=== PATIENT | male | born 1990 | race Hispanic/Latino ===

== ENCOUNTER 2017-12-31 12:52 | Emergency (ER) | payer MEDICAID ==
--- NOTE | 2017-12-31 15:45 | Emergency Department Report ---
- General Chief complaint: Skin Rash Stated complaint: INSECT BITE Time Seen by Provider: 12/31/17 15:04 Source: patient Mode of arrival: Ambulatory Limitations: No Limitations - History of Present Illness Initial comments: 27-year-old male past medical history diabetes insipidus mental retardation, migraines presents for evaluation sent from [facility] for evaluation of possible insect bite/bedbug bites on body. Patient is awake alert and oriented 3 not in acute distress. Is able to answer my questions and is accompanied by program director group work at bedside. Patient states that he has slightly itchy rash in the back of his neck. As per program director group work patient is in close proximity with another patient who is suspected to have bed bugs. Patient states that over the back of his neck feels slightly itchy and he has slight rash there. 2 small reddish visible bumps on back of neck. As per program director group work [employer] have been contracted to check the [facility] for bed bugs. MD complaint: insect bite/sting Onset/Timin -: week(s) Location: neck Severity: moderate Severity scale (0 -10): 5 - Related Data Home Medications Medication Instructions Recorded Confirmed Last Taken Desmopressin Acetate [Ddavp] 0.2 mg PO BID 09/18/13 12/06/14 12/06/14 Divalproex ER [Depakote ER] 500 mg PO BID 09/18/13 12/06/14 12/06/14 Eyelid Cleanser Comb No.7 [Ocusoft 1 each TP BID 09/18/13 12/06/14 12/06/14 Lid Scrub] Naltrexone (Nf) [Revia] 50 mg PO BID 09/18/13 12/06/14 12/06/14 Oxybutynin Chloride [Oxybutynin 5 mg PO BID 09/18/13 12/06/14 12/06/14 Chloride ER] Quetiapine Fumarate [Seroquel XR] 300 mg PO TID 09/18/13 12/06/14 12/06/14 lamoTRIgine [Lamotrigine] 100 mg PO BID 09/18/13 12/06/14 12/06/14 Levothyroxine [Synthroid] 50 mcg PO QAM 08/06/14 12/06/14 12/06/14 Neudexta 0612/06/14 12/06/14 Previous Rx's Medication Instructions Recorded Last Taken Type Amoxicillin/K Clav Tab [Augmentin 1 tab PO BID #20 tablet 12/06/14 Unknown Rx 875MG] Cephalexin [Keflex] 500 mg PO QID #20 capsule 03/10/16 Unknown Rx Cephalexin [Keflex] 500 mg PO BID #10 capsule 12/31/17 Unknown Rx Hydrocortisone 1% [Hydrocortisone 1 applicatio TP TID PRN #1 tube 12/31/17 Unknown Rx 1% CREAM] Mupirocin [Bactroban 2% OINT] 1 applic TP TID #1 tube 12/31/17 Unknown Rx Permethrin 5% [Acticin 5% CREAM] 1 applicatio TP ONCE #1 tube 12/31/17 Unknown Rx Allergies Allergy/AdvReac Type Severity Reaction Status Date / Time No Known Allergies Allergy Verified 12/31/17 13:05 Abscess Boil HPI - HPI Chief Complaint: Skin Rash Stated Complaint: INSECT BITE Time Seen by Provider: 12/31/17 15:04 Home Medications: Home Medications Medication Instructions Recorded Confirmed Last Taken Desmopressin Acetate [Ddavp] 0.2 mg PO BID 09/18/13 12/06/14 12/06/14 Divalproex ER [Depakote ER] 500 mg PO BID 09/18/13 12/06/14 12/06/14 Eyelid Cleanser Comb No.7 [Ocusoft 1 each TP BID 09/18/13 12/06/14 12/06/14 Lid Scrub] Naltrexone (Nf) [Revia] 50 mg PO BID 09/18/13 12/06/14 12/06/14 Oxybutynin Chloride [Oxybutynin 5 mg PO BID 09/18/13 12/06/14 12/06/14 Chloride ER] Quetiapine Fumarate [Seroquel XR] 300 mg PO TID 09/18/13 12/06/14 12/06/14 lamoTRIgine [Lamotrigine] 100 mg PO BID 09/18/13 12/06/14 12/06/14 Levothyroxine [Synthroid] 50 mcg PO QAM 08/06/14 12/06/14 12/06/14 Neudexta 06/30/15 06/30/15 06/30/15 Previous Rx's Medication Instructions Recorded Last Taken Type Amoxicillin/K Clav Tab [Augmentin 1 tab PO BID #20 tablet 12/06/14 Unknown Rx 875MG] Cephalexin [Keflex] 500 mg PO QID #20 capsule 03/10/16 Unknown Rx Cephalexin [Keflex] 500 mg PO BID #10 capsule 12/31/17 Unknown Rx Hydrocortisone 1% [Hydrocortisone 1 applicatio TP TID PRN #1 tube 12/31/17 Unknown Rx 1% CREAM] Mupirocin [Bactroban 2% OINT] 1 applic TP TID #1 tube 12/31/17 Unknown Rx Permethrin 5% [Acticin 5% CREAM] 1 applicatio TP ONCE #1 tube 12/31/17 Unknown Rx Allergies/Adverse Reactions: Allergies Allergy/AdvReac Type Severity Reaction Status Date / Time No Known Allergies Allergy Verified 12/31/17 13:05 ED Review of Systems ROS: Stated complaint: INSECT BITE Other details as noted in HPI Constitutional: denies: chills, fever Eyes: denies: eye pain, eye discharge, vision change ENT: denies: ear pain, throat pain Respiratory: denies: cough, shortness of breath, wheezing Cardiovascular: denies: chest pain, palpitations Endocrine: no symptoms reported Gastrointestinal: denies: abdominal pain, nausea, diarrhea Genitourinary: denies: urgency, dysuria Musculoskeletal: denies: back pain, joint swelling, arthralgia Skin: denies: rash, lesions Neurological: as per HPI. denies: headache, weakness, paresthesias Psychiatric: denies: anxiety, depression Hematological/Lymphatic: denies: easy bleeding, easy bruising ED Past Medical Hx - Past Medical History Previous Medical History?: Yes Hx Diabetes: Yes (isipidus) Hx Headaches / Migraines: Yes Hx Seizures: Yes Hx Psychiatric Treatment: Yes Additional medical history: diabetes insipidus. Mental retardation - Surgical History Past Surgical History?: Yes - Social History Smoking Status: Never Smoker Substance Use Type: None - Medications Home Medications: Home Medications Medication Instructions Recorded Confirmed Last Taken Type Desmopressin Acetate [Ddavp] 0.2 mg PO BID 09/18/13 12/06/14 12/06/14 History Divalproex ER [Depakote ER] 500 mg PO BID 09/18/13 12/06/14 12/06/14 History Eyelid Cleanser Comb No.7 [Ocusoft 1 each TP BID 09/18/13 12/06/14 12/06/14 History Lid Scrub] Naltrexone (Nf) [Revia] 50 mg PO BID 09/18/13 12/06/14 12/06/14 History Oxybutynin Chloride [Oxybutynin 5 mg PO BID 09/18/13 12/06/14 12/06/14 History Chloride ER] Quetiapine Fumarate [Seroquel XR] 300 mg PO TID 09/18/13 12/06/14 12/06/14 History lamoTRIgine [Lamotrigine] 100 mg PO BID 09/18/13 12/06/14 12/06/14 History Levothyroxine [Synthroid] 50 mcg PO QAM 08/06/14 12/06/14 12/06/14 History Amoxicillin/K Clav Tab [Augmentin 1 tab PO BID #20 tablet 12/06/14 Unknown Rx 875MG] Neudexta 12/06/14 12/06/14 12/06/14 History Cephalexin [Keflex] 500 mg PO QID #20 capsule 03/10/16 Unknown Rx Cephalexin [Keflex] 500 mg PO BID #10 capsule 12/31/17 Unknown Rx Hydrocortisone 1% [Hydrocortisone 1 applicatio TP TID PRN #1 tube 12/31/17 Unknown Rx 1% CREAM] Mupirocin [Bactroban 2% OINT] 1 applic TP TID #1 tube 12/31/17 Unknown Rx Permethrin 5% [Acticin 5% CREAM] 1 applicatio TP ONCE #1 tube 12/31/17 Unknown Rx ED Physical Exam - General Limitations: No Limitations General appearance: alert, in no apparent distress - Head Head exam: Present: atraumatic, normocephalic - Eye Eye exam: Present: normal appearance - ENT ENT exam: Present: mucous membranes moist - Neck Neck exam: Present: normal inspection - Respiratory Respiratory exam: Present: normal lung sounds bilaterally. Absent: respiratory distress - Cardiovascular Cardiovascular Exam: Present: regular rate, normal rhythm. Absent: systolic murmur, diastolic murmur, rubs, gallop - GI/Abdominal GI/Abdominal exam: Present: soft, normal bowel sounds - Rectal Rectal exam: Present: deferred - Extremities Exam Extremities exam: Present: normal inspection - Back Exam Back exam: Present: normal inspection - Neurological Exam Neurological exam: Present: alert, oriented X3 - Psychiatric Psychiatric exam: Present: normal affect, normal mood - Skin Skin exam: Present: warm, dry, intact, normal color, rash (2 small round insect bites approximately 1-2 cm each on back of neck, no overt cellulitis fluctuance or abscesses) ED Course Vital Signs 12/31/17 12:59 Temperature 98.3 F Pulse Rate 91 H Respiratory 16 Rate Blood Pressure 122/76 O2 Sat by Pulse 100 Oximetry ED Medical Decision Making - Medical Decision Making A/P: Possible bug bites, possible exposure to bedbugs or scabies 1-hydrocortisone topical to insect bites do not appear to be infected. 2-pt does not have disseminated insect bites only has 2 small suspected insect bites on back of neck do not appear to be infected or cellulitic Critical care attestation.: If time is entered above; I have spent that time in minutes in the direct care of this critically ill patient, excluding procedure time. ED Disposition Clinical Impression: Bug bites Qualifiers: Encounter type: initial encounter Qualified Code(s): W57.XXXA - Bitten or stung by nonvenomous insect and other nonvenomous arthropods, initial encounter Disposition: DC-01 TO HOME OR SELFCARE Is pt being admited?: No Does the pt Need Aspirin: No Condition: Stable Instructions: Insect Bite or Sting (ED) Prescriptions: Cephalexin [Keflex] 500 mg PO BID #10 capsule Hydrocortisone 1% [Hydrocortisone 1% CREAM] 1 applicatio TP TID PRN #1 tube PRN Reason: Itching Mupirocin [Bactroban 2% OINT] 1 applic TP TID #1 tube Permethrin 5% [Acticin 5% CREAM] 1 applicatio TP ONCE #1 tube Referrals: [facility] [Provider Group] - 3-5 Days Forms: Accompanied Note Time of Disposition: 15:43
[2017-12-31 16:20] VITALS: BP 120/74
== END 2017-12-31 16:18 | disposition home or self-care (01) ==
LOC: ED 12:52
DX: S10.96XA Insect bite of unspecified part of neck, initial encounter (principal); G43.909 Migraine, unspecified, not intractable, without status migrainosus; E23.2 Diabetes insipidus; W57.XXXA Bitten or stung by nonvenomous insect and other nonvenomous arthropods, initial encounter; Y93.89 Activity, other specified; Y99.8 Other external cause status; Y92.89 Other specified places as the place of occurrence of the external cause
CPT/HCPCS: 99282